=== PATIENT | male | born 1965 ===

== ENCOUNTER 2021-08-13 08:26 | Outpatient (CLI) | payer OTHER | END 2021-08-13 08:27 | disposition home or self-care (01) | LOC: TOM 08:26 | PROVIDERS: ATTEND Student in an Organized Health Care Education/Training Program | DX: Z12.11 Encounter for screening for malignant neoplasm of colon (principal) ==

== ENCOUNTER 2023-02-12 07:52 | Outpatient (CLI) | payer OTHER | END 2023-02-12 08:10 | disposition home or self-care (01) | LOC: TOM 07:52 | PROVIDERS: ATTEND Student in an Organized Health Care Education/Training Program | DX: R10.31 Right lower quadrant pain (principal) ==